=== PATIENT | female | born 1945 | race African-American/Black ===

== ENCOUNTER 2017-02-20 12:23 | Inpatient (IN) | payer OTHER, MEDICAID, MEDICARE ==
--- NOTE | 2017-02-20 12:51 | ED Physician Chart ---
Chief Complaint/HPI - Patient Information Date Seen:: 02/20/17 Time Seen:: 12:25 Chief Complaint:: Left Arm pain History of Present Illness:: pt developed left shoulder, left humerus, and left chest pain after an injury this morning at her care facility home; denies LOC, ALOC, dyspnea, Abd. pain, neck pain, H/As Allergies:: Allergies Allergy/AdvReac Type Severity Reaction Status Date / Time No Known Allergies Allergy Verified 02/20/17 12:30 Vitals:: Vital Signs - 8 hr 02/20/17 12:23 Temp 98.6 F HR 62 RR 16 BP 140/70 O2 Sat % 97 Historian:: Patient, EMS Review:: Nurse's Note Reviewed, Transfer documents Reviewed Review of Systems - Review of Systems General/Constitutional: Fever, Chills, No weight loss, Weakness, No diaphoresis , No edema, No loss of appetite Skin: No skin lesions, No rash, No bruising Head: Headache, No light-headedness Eyes: No loss of vision, No pain, No diplopia ENT: No earache, No nasal drainage, No sore throat, No tinnitus Neck: No neck pain, No swelling, No thyromegaly, No stiffness, No mass noted Cardio Vascular: Chest pain, Palpitations, No PND, No orthopnea, No edema Pulmonary: No SOB, Cough, No sputum, No wheezing GI: Nausea, Vomiting, Diarrhea, No pain, No melena, No hematochezia, No constipation, No hematemesis G/U: No dysuria, No frequency, No hematuria Manager Of It: No vaginal discharge, No abnormal vaginal bleed, No contraction Musculoskeletal: Bone or joint pain, No back pain, Muscle pain Endocrine: No polyuria, No polydipsia Psychiatric: Prior psych history, No depression, No anxiety, No suicidal ideation, Auditory hallucination, Visual hallucination Hematopoietic: No bruising, No lymphadenopathy Allergic/Immuno: No urticaria, No angioedema Neurological: No syncope, No focal symptoms, No weakness, No paresthesia, No headache, No seizure, No dizziness, No confusion, No vertigo Past Medical History - Past Medical History Past Medical History: HTN, Arthritis Family History: Diabetes Melitus, HTN Social History: Non Smoker, No Alcohol, No Drug Use, Single, Care Facility Surgical History: other (Left Ocular Surgery) Psychiatricy History: Schizophrenia Medication: Reviewed Family Medical History - Family Member Mother History Unknown: Yes Physical Exam - Physical Examination General/Constitutional: Awake, Well-developed, well-nourished, Alert, No distress, GCS 15, Non-toxic appearing, Ambulatory Head: Atraumatic Eyes: Lids, conjuctiva normal, PERRL, EOMI Skin: Nl inspection, No rash, No skin lesions, No ecchymosis, Well hydrated, No lymphadenopathy ENMT: External ears, nose nl, Nasal exam nl, Lips, teeth, gums nl Neck: Nontender, Full ROM w/o pain, No JVD, No nuchal rigidity, No bruit, No mass, No stridor Respiratory: Nl effort/Exclusion, Clear to Auscultation, No Wheeze/Rhonchi/Rales Cardio Vascular: RRR, No murmur, gallop, rubs, NL S1 S2 GI: No tenderness/rebounding/guarding, No organomegaly, No hernia, Normal BS's, Nondistended, No mass/bruits, No McBurney tenderness : No CVA tenderness Extremities: No tenderness or effusion, Full ROM, normal strength in all extremities, No edema, Normal digits & nails Other Extremities comments:: Left Chest Wall, Left Clavicle, Left Shoulder, and Left Humerus tenderness; good motor and sensory functions; good NV functions Neuro/Psych: Alert/oriented, DTR's symmetric, Normal sensory exam, Normal motor strength, Judgement/insight normal, Mood normal, Normal gait, No focal deficits Misc: normal gait, Normal back, No paraspinal tenderness Labs/Radiology/EKG Results - Lab Results Results: Unremarkable - Radiology Results Results: X-Rays: Left Humerus Impacted Fracture of the head and neck of the Left Humerus Bone of the Left Shoulder - EKG Interpretations EKG Time:: 13:11 Rate & Rhythm: Rate: 61; NSR [place]: WNL Intervals: WNL Comments:: non-specific changes ED Septic Shock - . Is Septic Shock (SBP<90, OR Lactate>4 mmol\L) present?: No - <6hrs of presentation: Vital Signs: Vital Signs - 8 hr 02/20/17 12:23 Temp 98.6 F HR 62 RR 16 BP 140/70 O2 Sat % 97 Reassessment (Disposition) - Reassessment Reassessment Condition:: Improved - Diagnosis Diagnosis:: Left Shoulder Fracture; Syncope; S/P Fall - Aftercare/Follow up Instructions Aftercare/Follow-Up Instructions:: Counseled pt & family regarding lab results/ diagnosis & need follow up - Patient Disposition Discharge/Transfer:: Acute Care w/in this hosp Accepting Physician:: Dr. Napoles Time Called:: 1087 Time Responded:: 15:45 Admitted to:: Telemetry Spoke to:: Dr. Napoles Condition at Disposition:: Stable, Improved
[2017-02-20 13:11] LABS: % BASOPHILS 0.4 % (0.0-2.0); % EOSINOPHILS 1.3 % (0.0-5.0); % LYMPHOCYTES 10.8 % (20.0-50.0); % MONOCYTES 6.7 % (2.0-10.0); % NEUTROPHILS 80.8 % (40.0-80.0); HEMATOCRIT 37.7 % (35.0-45.0); HEMOGLOBIN 12.6 gm/dL (11.7-16.1); MEAN CELL VOLUME 87.8 fl (81-100); MEAN CORPUSCULAR HEMOGLOBIN 29.3 pg (27.0-31.0); MEAN CORPUSCULAR HGB CONC 33.3 pg (28.0-36.0); MEAN PLATELET VOLUME 7.4 fl; NEUTROPHILE ABSOLUTE 6.8 Th/cmm (1.8-8.0); RED BLOOD COUNT 4.29 Mil/cmm (3.80-5.20); WHITE BLOOD COUNT 8.4 Th/cmm (4.8-10.8)
[2017-02-20 13:17] LABS: PLATELET COUNT 212 Th/cmm (150-400)
[2017-02-20 13:21] LABS: INR 1.06 (0.5-1.4)
[2017-02-20 13:29] LABS: ANION GAP 5.2 (7.0-16.0); BUN - UREA NITROGEN 22 mg/dL (7-25); CALCIUM SERUM 9.6 mg/dL (8.6-10.3); CARBON DIOXIDE 29.9 mEq/L (21.0-31.0); CHLORIDE 105 mEq/L (98-107); CREATININE - SERUM 1.1 mg/dL (0.6-1.2); GLUCOSE 200 mg/dL (70-105); POTASSIUM SERUM 4.1 mEq/L (3.5-5.1); SODIUM SERUM 136 mEq/L (136-145)
[2017-02-20 13:30] LABS: TROP I < 0.01 ng/mL (0.01-0.05)
[2017-02-20 13:40] LABS: BNP 67.1 pg/mL (5.0-100.0)
--- NOTE | 2017-02-20 14:18 | Diagnostic Imaging Report ---
CHEST X-RAY: AP view INDICATION: Trauma COMPARISON: None FINDINGS: No focal consolidation pleural effusions or evidence of a pneumothorax. The patient is mildly rotated. Heart size is normal. Atherosclerosis is noted. A proximal left humeral fracture is noted. IMPRESSION: No focal consolidation or evidence of pneumothorax Proximal left humeral fracture. Please refer to left humerus x-rays the same day for further details. Atherosclerotic vascular disease.
--- NOTE | 2017-02-20 14:20 | Diagnostic Imaging Report ---
Left clavicle 2 views Indication: Trauma Comparison: Left shoulder and left humeral x-ray the same day Findings: The left clavicle is intact. The left AC joint is intact. Impacted left humeral head and neck fracture is noted. Impression: Impacted left humeral head and neck fracture Intact left clavicle No evidence of AC joint separation. In the setting of trauma, if clinical symptoms persist and there is continued concern for an occult fracture, follow up exams in 5-7 days is suggested.
--- NOTE | 2017-02-20 14:21 | Diagnostic Imaging Report ---
Left shoulder 2 views Indication: Trauma Comparison: Left humerus x-rays the same day Findings: Impacted left humeral head and neck fracture is noted. No evidence of dislocation. Mild surrounding soft tissue swelling is noted. Impression: Impacted left humeral head and neck fracture. No evidence of dislocation.
--- NOTE | 2017-02-20 14:22 | Diagnostic Imaging Report ---
Left humerus 2 views Indication: Trauma Comparison: Left shoulder x-ray the same day Findings: Impacted left humeral head and neck fracture is noted. No dislocation. Mild surrounding soft tissue swelling is noted. Impression: Impacted left humeral head and neck fracture.
--- NOTE | 2017-02-20 14:23 | Diagnostic Imaging Report ---
Left elbow 3 views Indication: Trauma Comparison: Left humerus x-rays the same day Findings: Osteopenia is suspected. Minimal degenerative changes of the elbow joint are noted. No evidence of an acute fracture or gross joint effusion. Impression: No evidence of an acute fracture. Osteopenia suspected. In the setting of trauma, if clinical symptoms persist and there is continued concern for an occult fracture, follow up exams in 5-7 days is suggested.
--- NOTE | 2017-02-20 16:21 | Admit Criteria Form ---
Admit Criteria Forms - Admit Criteria Diagnosis: MUSCULOSKELETAL DISEASE [facility] Clinical Indications for Admission to Inpatient Care (Place 'X' for any and all applicable criteria): Hospital admission is needed for appropriate care of the patient because of 1 or more of the following: [X ]I. Fracture, dislocation, or other musculoskeletal injury requiring inpatient care(medical) as indicated by 1 or more of the following(4)(5)(6)(7) [ ]a) Vertebral fracture requiring observation for instability or neurologic compromise (8) [ ]b) Compartment syndrome (proven or cannot be ruled out during observation level of care) (9) [ ]c) Limb-threatening injury [ ]d) Major injury requiring inpatient stabilization such as traction initiation or external fixation before internal fixation or closure of complex or open fracture [ ]e) Major injury requiring inpatient treatment after emergency or observation level care (as appropriate) [X ]f) Severe pain requiring acute inpatient management [ ]g) Injury with suspicion of abuse or neglect (eg., child, dependent elderly) [ ]II. Newly diagnosed or suspected bone, joint, or orthopedic device infection (e.g., osteomyelitis, septic arthritis) needing 1 or more of the following(1)(2)(3) [ ]a) IV antibiotics that cannot be initiated in other than inpatient setting (e.g., patient too unstable or home infusion not available) [ ]b) Device removal or replacement [ ]c) Bone or soft tissue debridement [ ]d) Joint drainage (drain placement or repetitive aspirations) [ ]III. Severe rheumatologic disease (e.g., systemic lupus erythematosus, rheumatoid arthritis) with complications or comorbidities (Also use Optimal Recovery Care Criteria or General Recovery Criteria as appropriate on the basis of predominant condition), including 1 or more of the following( 10)(11)(12)(13) [ ]a) Severe infection (e.g., BOTTLE FILLER infection, sepsis) (14) [ ]b) Respiratory complications, including 1 or more of the following : [ ]i) Pleural effusion with respiratory compromise [ ]ii) Pulmonary hypertension with congestive failure [ ]iii) Respiratory failure [ ]iv) Pulmonary hemorrhage (15) [ ]c) Hematologic disease, including 1 or more of the following: [ ]i) Coagulopathy with bleeding [ ]ii) Thrombosis with hypercoagulable state [ ]iii) Thrombotic thrombocytopenic purpura [ ]d) Cerebritis with seizures, psychosis, or other severe abnormalities [ ]e) Vertebral destruction with monitoring needed for cervical myelopathy& possible respiratory compromise [ ]f) Exacerbation that requires inpatient treatment (e.g., intravenous immunosuppression) (16) [ ]g) Acute renal failure [ ]h) Cerebritis with seizures, psychosis, Altered mental status, or other neurologic abnormalities [ ]i) Pericardial effusion with tamponade [ ]j) Vertebral destruction, with monitoring needed for cervical myelopathy and possible respiratory compromise [ ]IV. Severe vasculitis with complications or comorbidities (Also use Optimal Recovery Care Criteria General Recovery Criteria as appropriate on the basis of predominant condition), including 1 or more of the following(11)(12)(17)(18)(19)(20) [ ]a) Exacerbation that requires inpatient treatment (e.g., intravenous immunosuppression) (19)(21) [ ]b) Pulmonary hemorrhage (15) [ ]c) BOTTLE FILLER vasculitis with seizures, psychosis, Altered mental status that is severe or persistent, or other severe abnormalities (22) [ ]d) Cerebral infarction [ ]e) Gastrointestinal ischemia [ ]f) Gangrene or threatened amputation [ ]g) Renal failure (16) [ ]h) Other significant complications of vasculitis ( eg., tissue or organ ischemia, organ dysfunction ) [ ]V. Severe myopathy as indicated by 1 or more of the following (28)(29) [ ]a) New onset of airway compromise or inability to swallow [ ]b) Respiratory deterioration with observation needed for impending respiratory failure [ ]c) Exacerbation that requires inpatient treatment (e.g., intravenous immunosuppression) [ ]. Severe crystal gout (arthropathy) indicated by 1 or more of the following (23)(24) [ ]a) Severe pain requiring acute inpatient management [ ]b) Exacerbation that requires inpatient treatment (e.g., intravenous treatment) [ ]VII.Rhabdomyolysis and 1 or more of the following (25)(26)(27) [ ]a) Acute renal failure [ ]b) Need for intravenous hydration after emergency or observation level care (as appropriate) [ ]c) Inability to maintain oral hydration [ ]d) Change in mental status [ ]e) Electrolyte abnormality that remains after emergency or observation level care (as appropriate) [ ]VIII Post amputation complication, as indicated by ANY ONE of the following [ ]a) Infection [ ]b) Dehiscence [ ]c) Myodesis failure [ ]IX. Severe pain requiring acute inpatient management due to musculoskeletal condition [ ]X. Musculoskeletal Disease and ALL of the following: [ ]a) Symptom or finding for which emergency and observation care have failed or are not considered appropriate (Use General Criteria: Observation Care as appropriate) [ ]b) Presence of ANY ONE of the following [ ]i) A General Admission Criteria [ ]ii) A Pediatric General Admission Criteria The original [facility] content created by [facility] has been revised. The portions of the content which have been revised are identified through the use of italic text or in bold, and [facility] has neither reviewed nor approved the modified material. All other unmodified content is copyright [facility]. Please see references footnoted in the original [facility] edition 2016 Admit Criteria Met?: Yes
[2017-02-20] MEDS ORDERED: Morphine Sulfate 4 mg/mL 1mL Syr ONE (16:33)
[2017-02-20] MEDS: Diltiazem CD 120 mg 24H PO SCH (22:21)
[2017-02-20] MEDS: Pantoprazole 40 mg EC Tab PO SCH (22:23)
[2017-02-20] MEDS: Benztropine 1 MG TAB PO SCH (22:25)
[2017-02-21] MEDS: Oxybutynin Chloride 5 mg ER Tab PO SCH ×2 (04:41→09:42)
[2017-02-21] MEDS: Benztropine 1 MG TAB PO SCH ×2 (09:34→16:56)
[2017-02-21] MEDS: Diltiazem CD 120 mg 24H PO SCH (09:37)
[2017-02-21] MEDS: Pantoprazole 40 mg EC Tab PO SCH (09:40)
--- NOTE | 2017-02-21 10:53 | Consultation ---
DATE OF CONSULTATION: 02/21/2017 REFERRING PHYSICIAN: Weston Napoles M.D. REASON FOR CONSULTATION: Elevated D-dimer. HISTORY OF PRESENT ILLNESS: The patient is a 71-year-old female who suffered fall and trauma to the left shoulder and was complaining of severe pain. She had an x-ray confirming presence of left humerus head and neck fracture, therefore, the patient is admitted. The workup was unremarkable for elevated D-dimer, otherwise normal PT and PTT and platelet count. PAST MEDICAL HISTORY: Hypertension, osteoarthritis. SOCIAL HISTORY: No smoke or drinking. MEDICATIONS: Reviewed. PHYSICAL EXAMINATION: GENERAL: The patient is awake, cooperative. VITAL SIGNS: Stable. NECK: No peripheral lymphadenopathy. Left arm sling, no obvious hematoma. CHEST: Clear. ABDOMEN: Soft. EXTREMITIES: Lower extremities, no edema. NERVOUS SYSTEM: Moves lower extremities and right upper extremity. Left arm in sling and not tested. LABORATORY DATA: D-dimer 1210 and platelets 212, creatinine 1.1. ASSESSMENT: 1. Left humerous head and neck fracture. 2. Elevated D-dimer secondary to fracture and trauma. PLAN: No intervention is required for the elevated D-dimer. I will start the patient on prophylactic dose Lovenox and hold on the day of surgery if she is to get orthopedic surgical intervention. Thank you, Dr. Napoles for the opportunity to participate in the care of this interesting case. [facility]# [id number]
[2017-02-21] MEDS: Enoxaparin 40 mg/0.4 mL 0.4mL Syr SUBQ SCH (11:06)
--- NOTE | 2017-02-21 13:35 | Diagnostic Imaging Report ---
Bilateral lower extremity Doppler venous ultrasound exam HISTORY: Pain/swelling Sonographic sector images were obtained through the deep venous systems of both legs. Associated Doppler data was obtained. The exam demonstrates patency of the common femoral, superficial femoral, popliteal, and posterior tibial veins bilaterally. Specifically, no thrombus is seen. There are normal compressibility and augmentation responses. IMPRESSION: Negative exam for deep vein thrombophlebitis.
--- NOTE | 2017-02-21 23:47 | History & Physical ---
ADMIT DATE: 02/20/2017 REASON FOR ADMISSION: Status post fall, left shoulder fracture. HISTORY OF PRESENT ILLNESS: This is a 71-year-old female who sustained a mechanical fall at [facility] and was brought to Emergency Room for severe left lower pain. Her left shoulder x-ray was done suggestive of impacted left humeral head and neck fracture. The patient was given shoulder sling and subsequently admitted for further evaluation and treatment. At the time of evaluation, the patient stated that while she was going to laundry area, she missed the steps, tripped, and fell. She denies any associated dizziness. No chest pain, no shortness of breath, no palpitations, no headache, no trouble speech or visual disturbance, no fever, no chills or any other complaints. Pain is under control with the pain medication. PAST MEDICAL HISTORY: Overactive bladder, dementia, hypertension, and chronic constipation. PAST SURGICAL HISTORY: No reports of any past surgery. FAMILY HISTORY: Noncontributory. SOCIAL HISTORY: Lives at [facility]. Denies any alcohol or tobacco. CURRENT MEDICATIONS: The patient is currently on [place], Cardizem, Cymbalta, Lovenox, Zestril, Toprol, morphine, Zofran, oxybutynin, Protonix, Risperdal, and trazodone. REVIEW OF SYSTEMS: The patient denies any fever, no chills, no nausea, no vomiting, no abdominal pain, no headache, ____ trouble speech, no trouble with vision. Denies any dysuria or hematuria. Denies hematemesis or bleeding. Complains of pain in the left arm and the shoulder area. PHYSICAL EXAMINATION: VITAL SIGNS: Temperature 98.7, pulse 61, respirations 18, blood pressure 140/75, and oxygen 96% on room air. GENERAL APPEARANCE: The patient does not seem in acute distress. HEENT: Unremarkable. HEART: S1, S2 normal. LUNGS: Clear to auscultation bilaterally. ABDOMEN: Soft, nontender, and no guarding. NEUROLOGIC: The patient is awake. Moves all four. No focal deficits. MUSCULOSKELETAL: Left shoulder sling noted. Left shoulder range of motion was extremely painful. AVAILABLE LABORATORY DATA: WBC is 8.4, hemoglobin is 12.6, hematocrit 37.7, platelets count is 212, sodium 133, potassium is 4.1, BUN 22, creatinine is 1.1, hemoglobin A1c 5.5, troponin less than 0.015. BNP is 67.1. D-dimer 1210. Left humerus x-ray as described above. Right lower extremity venous Doppler negative for DVT. Chest x-ray shows no acute cardiopulmonary distress. ASSESSMENT: 1. Left humerus fracture. 2. Status post mechanical fall. 3. Hypertension. 4. Psychiatric disorder. 5. Overactive bladder. 6. Dementia. 7. Generalized debility. PLAN: The patient was admitted to the hospital for further treatment of left shoulder fracture. Orthopedics was consulted. Also, Hematology was consulted to evaluate D-dimer. Hematology evaluated the patient's D-dimer ____ due to the patient's current fracture, no further Hematology workup was advised. The patient was started on DVT prophylaxis, IV morphine for pain control, home medications ____ continue. Discussed the patient ____ condition and plan of care with nursing staff. [facility]# [id number]
[2017-02-22 07:17] LABS: % BASOPHILS 0.6 % (0.0-2.0); % EOSINOPHILS 1.3 % (0.0-5.0); % LYMPHOCYTES 15.2 % (20.0-50.0); % MONOCYTES 12.1 % (2.0-10.0); % NEUTROPHILS 70.8 % (40.0-80.0); HEMATOCRIT 37.7 % (35.0-45.0); HEMOGLOBIN 12.7 gm/dL (11.7-16.1); MEAN CELL VOLUME 87.7 fl (81-100); MEAN CORPUSCULAR HEMOGLOBIN 29.5 pg (27.0-31.0); MEAN CORPUSCULAR HGB CONC 33.7 pg (28.0-36.0); MEAN PLATELET VOLUME 8.1 fl; NEUTROPHILE ABSOLUTE 5.4 Th/cmm (1.8-8.0); PLATELET COUNT 206 Th/cmm (150-400); RED BLOOD COUNT 4.29 Mil/cmm (3.80-5.20); RED CELL DISTRIBUTION WIDTH 13.7 % (11.5-20.0); WHITE BLOOD COUNT 7.5 Th/cmm (4.8-10.8)
[2017-02-22] MEDS: Benztropine 1 MG TAB PO SCH ×2 (09:38→17:08)
[2017-02-22] MEDS: Diltiazem CD 120 mg 24H PO SCH (09:38)
[2017-02-22] MEDS: Oxybutynin Chloride 5 mg ER Tab PO SCH (09:38)
[2017-02-22] MEDS: Pantoprazole 40 mg EC Tab PO SCH (09:40)
[2017-02-22] MEDS: Enoxaparin 40 mg/0.4 mL 0.4mL Syr SUBQ SCH (09:43)
--- NOTE | 2017-02-22 23:44 | General Progress Note ---
Subjective - Review of Systems Service Date: 02/22/17 Subjective: Patient doing fine denied any complaints Objective - Results Result Diagrams: 02/22/17 06:12 02/20/17 13:00 Recent Labs: Laboratory Last Values WBC 7.5 Th/cmm (4.8-10.8) 02/22/17 06:12 RBC 4.29 Mil/cmm (3.80-5.20) 02/22/17 06:12 Hgb 12.7 gm/dL (11.7-16.1) 02/22/17 06:12 Hct 37.7 % (35.0-45.0) 02/22/17 06:12 MCV 87.7 fl (81-100) 02/22/17 06:12 MCH 29.5 pg (27.0-31.0) 02/22/17 06:12 MCHC Differential 33.7 pg (28.0-36.0) 02/22/17 06:12 RDW 13.7 % (11.5-20.0) 02/22/17 06:12 Plt Count 206 Th/cmm (150-400) 02/22/17 06:12 MPV 8.1 fl 02/22/17 06:12 Neutrophils % 70.8 % (40.0-80.0) 02/22/17 06:12 Lymphocytes % 15.2 % (20.0-50.0) L 02/22/17 06:12 Monocytes % 12.1 % (2.0-10.0) H 02/22/17 06:12 Eosinophils % 1.3 % (0.0-5.0) 02/22/17 06:12 Basophils % 0.6 % (0.0-2.0) 02/22/17 06:12 PT 11.0 SECONDS (9.5-11.5) 02/20/17 13:00 INR 1.06 (0.5-1.4) 02/20/17 13:00 D-Dimer 1210 ng/mL (100-400) H 02/20/17 13:00 Sodium 136 mEq/L (136-145) 02/20/17 13:00 Potassium 4.1 mEq/L (3.5-5.1) 02/20/17 13:00 Chloride 105 mEq/L (98-107) 02/20/17 13:00 Carbon Dioxide 29.9 mEq/L (21.0-31.0) 02/20/17 13:00 Anion Gap 5.2 (7.0-16.0) L 02/20/17 13:00 BUN 22 mg/dL (7-25) 02/20/17 13:00 Creatinine 1.1 mg/dL (0.6-1.2) 02/20/17 13:00 Est GFR ( Amer) TNP 02/20/17 13:00 Est GFR (Non-Af Amer) TNP 02/20/17 13:00 BUN/Creatinine Ratio 20.0 02/20/17 13:00 Glucose 200 mg/dL (70-105) H 02/20/17 13:00 Hemoglobin A1c % 5.5 % (4.0-6.0) 02/20/17 13:00 Calcium 9.6 mg/dL (8.6-10.3) 02/20/17 13:00 Creatine Kinase 124 U/L (30-223) 02/20/17 13:00 Troponin I < 0.01 ng/mL (0.01-0.05) L 02/20/17 13:00 B-Natriuretic Peptide 67.1 pg/mL (5.0-100.0) 02/20/17 13:00 - Physical Exam Vitals and I&O: Vital Signs Temp 97.9 F 02/22/17 20:00 Pulse 72 02/22/17 20:00 Resp 19 02/22/17 20:00 BP 138/79 02/22/17 20:00 Pulse Ox 98 02/22/17 20:00 Intake & Output 02/22/17 02/22/17 02/23/17 06:59 18:59 06:59 Intake Total 60 600 Balance 60 600 Intake: Oral 60 600 Other: # Voids 2 3 # Bowel Movements 1 Stool Characteristics Formed Formed Active Medications: Current Medications Benztropine Mesylate (Cogentin) 1 mg PO DAILY [facility] Stop: 04/24/17 16:59 Calcium Carbonate (Os-[place]) 500 mg PO BID [facility] Stop: 04/21/17 20:29 Last Admin: 02/22/17 17:08 Dose: 500 mg Diltiazem HCl (Cardizem Cd) 240 mg PO DAILY [facility] Stop: 04/21/17 20:29 Last Admin: 02/22/17 09:38 Dose: 240 mg Donepezil HCl (Aricept) 10 mg PO HS [facility] Stop: 04/22/17 20:59 Last Admin: 02/22/17 21:19 Dose: 10 mg Duloxetine HCl (Cymbalta) 30 mg PO DAILY [facility] PRN Reason: Protocol Stop: 04/21/17 20:29 Last Admin: 02/22/17 09:40 Dose: 30 mg Enoxaparin Sodium (Lovenox) 40 mg SUBQ DAILY [facility] Stop: 04/22/17 10:29 Last Admin: 02/22/17 09:43 Dose: 40 mg Lisinopril (Zestril) 40 mg PO DAILY [facility] Stop: 04/21/17 20:29 Last Admin: 02/22/17 09:39 Dose: 40 mg Metoprolol Succinate (Toprol Xl) 50 mg PO DAILY [facility] Stop: 04/21/17 20:29 Last Admin: 02/22/17 09:40 Dose: 50 mg Morphine Sulfate (Morphine) 3 mg IV Q3HR PRN PRN Reason: Pain (Mild) Stop: 04/21/17 18:22 Last Admin: 02/22/17 05:54 Dose: 3 mg Ondansetron HCl (Zofran) 4 mg IV Q6HR PRN PRN Reason: Nausea / Vomiting Stop: 04/21/17 18:22 Oxybutynin Chloride (Ditropan) 5 mg PO DAILY [facility] Stop: 04/24/17 08:59 Pantoprazole Sodium (Protonix) 40 mg PO DAILY [facility] Stop: 04/21/17 20:29 Last Admin: 02/22/17 09:40 Dose: 40 mg Risperidone (Risperdal) 1 mg PO HS [facility] PRN Reason: Protocol Stop: 04/21/17 20:59 Last Admin: 02/22/17 21:19 Dose: 1 mg Trazodone HCl (Desyrel) 100 mg PO HS [facility] Stop: 04/21/17 20:59 Last Admin: 02/22/17 21:20 Dose: 100 mg Cardiovascular: Regular rate Lungs: Clear to auscultation Abdomen: Soft - Procedures Procedures: Procedures Procedure Code Date OTHER GROUP THERAPY 94.44 10/24/12 RECREATIONAL THERAPY 93.81 10/24/12 Assessment/Plan - Assessment Assessment: Left humerus fracture HTN Overactive Bladder Psych disorder - Plan Plan: Per Ortho no surgical intervention recomended SNIF DC planing in progress Continue current treatment Nutritional Asmnt/Malnutr-PDOC - Dietary Evaluation Malnutrition Findings (Please click <Entered> for more info): Nutritional Asmnt/Malnutrition Start: 02/21/17 10: 02 Text: Status: Complete Freq: Document 02/21/17 10:02 GSUN (Rec: 02/21/17 10:12 [email or web address] [email or web address]) Nutritional Asmnt/Malnutrition Patient General Information Nutritional Screening Consult Diagnosis ER: left shoulder fracture, s/ p fall, syncope Pertinent Medical Hx/Surgical Hx ER: HTN, arthritis Subjective Information 71 year old female from SNF. RD consult for hyperglycemia. Pt was alert and cooperative, pleasant interview. Teeth present, pt stated "lump" at throat, but denied difficulties swallowing. UBW 152lb. Pt appeared approrpiate for age. Pt stated good appetite, ate most of breakfast. No nutritional concerns at this time. Current Diet Order/ Nutrition Support Low sodium Patient / S.O Can Pertinent Medications Os0Cal, Morphine, Zofran, Protonix Pertinent Labs 02/20: glucose 200H, A1c 5.5 Nutritional Hx/Data Height 1.65 m Height (Calculated Centimeters) 165.1 Current Weight (lbs) 67.585 kg Weight (Calculated Kilograms) 67.6 Weight (Calculated Grams) 08924.3 Usual body Weight (lbs) 152 [place] Body Weight 125 Recent Weight Change No Weight Status Approriate GI Symptoms Food Allergies No Usual diet at home Pt stated she does not eat salt at SNF (liekly MARANDA diet) Skin Integrity/Comment: [place] 17. Skin intact. Estimated Nutritional Goals BEE in Kcals: Using Current wt Calories/Kcals/Kg CBW 67.6kg Kcals Calculated 1690-2028kcal (25-30kcal/kg) Protein: Using Current wt Protein Calculated 68g (1g/kg) Fluid: ml 1690-2028ml (1ml/kcal) Nutritional Problem 1. Problem Problem No nutritional problem at this time. Intervention/Recommendation Comments 1. Continue with low sodium diet. Explained to pt low sodium diet vs. HTN. Expected Outcomes/Goals Expected Outcomes/Goals 1. PO intake to meet at least 75% fo estimated nutritional needs.
--- NOTE | 2017-02-23 04:33 | Consultation ---
DATE OF CONSULTATION: 02/22/2017 HISTORY OF PRESENT ILLNESS: The patient is a 71-year-old resident of [facility] who was admitted to [facility] on 02/20/2017, following a fall at the facility wherein she injured her left shoulder. She is also being worked up for hypertension and medical problems. I was called in orthopedic consultation by the admitting physician regarding her fractured left shoulder. ADDITIONAL HISTORY: The patient stated she has "a little high blood pressure," further stated that she does not have any real medical problems. FAMILY HISTORY: She is not sure. REVIEW OF SYSTEMS: No additional complaints. PHYSICAL EXAMINATION: GENERAL: The patient was examined in her hospital room at [facility]. She presents as conscious, alert, pleasant 71-year-old -[place] lady in no acute distress. Head: Normocephalic and atraumatic. NECK: Supple with good range of motion, no pain. EXTREMITIES: Right upper extremity unremarkable. Left upper extremity, there is no bruising or swelling noted. She has pain and tenderness about the left shoulder. Range of motion was not fully tested. NEUROLOGIC: Neurovascular function of all extremities was within normal limits. IMAGING STUDIES: I reviewed images in the PACS, left elbow, humerus and shoulder there is a slightly impacted fracture of the head of the left humerus with involvement of the greater tuberosity, which is slightly twisted and displaced 1-2 mm. Overall alignment is good. The articular surface is intact. ORTHOPEDIC DIAGNOSIS: Fractured head of the left humerus, minimally displaced. RECOMMENDATIONS: The patient was told to continue with her sling. She can do Codman pendulum exercises. She should not lean on the left arm or elbow nor should she try and raise it under her own power on that side unless the fractured greater tuberosity displaces which would then probably require surgery - open reduction and internal fixation. She can have a followup x-ray in 2-3 weeks to check the position of the fracture to be sure it is not displacing significantly. Her injury should heal in 2-3 months. I would be happy to follow her in my office as an outpatient. Thank you for this interesting referral. JOB# [id number]
[2017-02-23] MEDS: Diltiazem CD 120 mg 24H PO SCH (08:46)
[2017-02-23] MEDS: Pantoprazole 40 mg EC Tab PO SCH (08:46)
[2017-02-23] MEDS: Enoxaparin 40 mg/0.4 mL 0.4mL Syr SUBQ SCH (08:48)
[2017-02-23] MEDS ORDERED: Benztropine 1 MG TAB PO SCH (17:00)
--- NOTE | 2017-02-23 18:03 | General Progress Note ---
Subjective - Review of Systems Service Date: 02/23/17 Subjective: Patient doing fine denied any complaints Objective - Results Result Diagrams: 02/22/17 06:12 02/20/17 13:00 Recent Labs: Laboratory Last Values WBC 7.5 Th/cmm (4.8-10.8) 02/22/17 06:12 RBC 4.29 Mil/cmm (3.80-5.20) 02/22/17 06:12 Hgb 12.7 gm/dL (11.7-16.1) 02/22/17 06:12 Hct 37.7 % (35.0-45.0) 02/22/17 06:12 MCV 87.7 fl (81-100) 02/22/17 06:12 MCH 29.5 pg (27.0-31.0) 02/22/17 06:12 MCHC Differential 33.7 pg (28.0-36.0) 02/22/17 06:12 RDW 13.7 % (11.5-20.0) 02/22/17 06:12 Plt Count 206 Th/cmm (150-400) 02/22/17 06:12 MPV 8.1 fl 02/22/17 06:12 Neutrophils % 70.8 % (40.0-80.0) 02/22/17 06:12 Lymphocytes % 15.2 % (20.0-50.0) L 02/22/17 06:12 Monocytes % 12.1 % (2.0-10.0) H 02/22/17 06:12 Eosinophils % 1.3 % (0.0-5.0) 02/22/17 06:12 Basophils % 0.6 % (0.0-2.0) 02/22/17 06:12 PT 11.0 SECONDS (9.5-11.5) 02/20/17 13:00 INR 1.06 (0.5-1.4) 02/20/17 13:00 D-Dimer 1210 ng/mL (100-400) H 02/20/17 13:00 Sodium 136 mEq/L (136-145) 02/20/17 13:00 Potassium 4.1 mEq/L (3.5-5.1) 02/20/17 13:00 Chloride 105 mEq/L (98-107) 02/20/17 13:00 Carbon Dioxide 29.9 mEq/L (21.0-31.0) 02/20/17 13:00 Anion Gap 5.2 (7.0-16.0) L 02/20/17 13:00 BUN 22 mg/dL (7-25) 02/20/17 13:00 Creatinine 1.1 mg/dL (0.6-1.2) 02/20/17 13:00 Est GFR ( Amer) TNP 02/20/17 13:00 Est GFR (Non-Af Amer) TNP 02/20/17 13:00 BUN/Creatinine Ratio 20.0 02/20/17 13:00 Glucose 200 mg/dL (70-105) H 02/20/17 13:00 Hemoglobin A1c % 5.5 % (4.0-6.0) 02/20/17 13:00 Calcium 9.6 mg/dL (8.6-10.3) 02/20/17 13:00 Creatine Kinase 124 U/L (30-223) 02/20/17 13:00 Troponin I < 0.01 ng/mL (0.01-0.05) L 02/20/17 13:00 B-Natriuretic Peptide 67.1 pg/mL (5.0-100.0) 02/20/17 13:00 - Physical Exam Vitals and I&O: Vital Signs Temp 98.2 F 02/23/17 16:00 Pulse 75 02/23/17 16:00 Resp 17 02/23/17 16:00 BP 128/68 02/23/17 16:00 Pulse Ox 98 02/23/17 16:00 Intake & Output 02/22/17 02/23/17 02/23/17 18:59 06:59 18:59 Intake Total 600 160 500 Balance 600 160 500 Intake: Oral 600 160 500 Other: # Voids 3 2 3 # Bowel Movements 1 Stool Characteristics Formed Formed Formed Active Medications: Current Medications Benztropine Mesylate (Cogentin) 1 mg PO DAILY [facility] Stop: 04/24/17 16:59 Calcium Carbonate (Os-[place]) 500 mg PO BID [facility] Stop: 04/21/17 20:29 Last Admin: 02/23/17 16:54 Dose: 500 mg Diltiazem HCl (Cardizem Cd) 240 mg PO DAILY [facility] Stop: 04/21/17 20:29 Last Admin: 02/23/17 08:46 Dose: 240 mg Donepezil HCl (Aricept) 10 mg PO HS [facility] Stop: 04/22/17 20:59 Last Admin: 02/22/17 21:19 Dose: 10 mg Duloxetine HCl (Cymbalta) 30 mg PO DAILY [facility] PRN Reason: Protocol Stop: 04/21/17 20:29 Last Admin: 02/23/17 08:47 Dose: 30 mg Enoxaparin Sodium (Lovenox) 40 mg SUBQ DAILY [facility] Stop: 04/22/17 10:29 Last Admin: 02/23/17 08:48 Dose: 40 mg Lisinopril (Zestril) 40 mg PO DAILY [facility] Stop: 04/21/17 20:29 Last Admin: 02/23/17 08:46 Dose: 40 mg Metoprolol Succinate (Toprol Xl) 50 mg PO DAILY [facility] Stop: 04/21/17 20:29 Last Admin: 02/23/17 08:47 Dose: 50 mg Morphine Sulfate (Morphine) 3 mg IV Q3HR PRN PRN Reason: Pain (Mild) Stop: 04/21/17 18:22 Last Admin: 02/23/17 16:00 Dose: 3 mg Ondansetron HCl (Zofran) 4 mg IV Q6HR PRN PRN Reason: Nausea / Vomiting Stop: 04/21/17 18:22 Oxybutynin Chloride (Ditropan) 5 mg PO DAILY [facility] Stop: 04/24/17 08:59 Last Admin: 02/23/17 08:47 Dose: 5 mg Pantoprazole Sodium (Protonix) 40 mg PO DAILY [facility] Stop: 04/21/17 20:29 Last Admin: 02/23/17 08:46 Dose: 40 mg Risperidone (Risperdal) 1 mg PO HS [facility] PRN Reason: Protocol Stop: 04/21/17 20:59 Last Admin: 02/22/17 21:19 Dose: 1 mg Trazodone HCl (Desyrel) 100 mg PO HS [facility] Stop: 04/21/17 20:59 Last Admin: 02/22/17 21:20 Dose: 100 mg Cardiovascular: Normal S1, Normal S2 Lungs: Clear to auscultation Abdomen: Soft Extremities: Other (left fingers movement normal) - Procedures Procedures: Procedures Procedure Code Date OTHER GROUP THERAPY 94.44 10/24/12 RECREATIONAL THERAPY 93.81 10/24/12 Assessment/Plan - Assessment Assessment: Left humerus fracture HTN Overactive Bladder Psych disorder - Plan Plan: Per Ortho no surgical intervention recomended SNIF DC planing in progress Continue current treatment Nutritional Asmnt/Malnutr-PDOC - Dietary Evaluation Malnutrition Findings (Please click <Entered> for more info): Nutritional Asmnt/Malnutrition Start: 02/21/17 10: 02 Text: Status: Complete Freq: Document 02/21/17 10:02 GSUN (Rec: 02/21/17 10:12 [email or web address] [id number]) Nutritional Asmnt/Malnutrition Patient General Information Nutritional Screening Consult Diagnosis ER: left shoulder fracture, s/ p fall, syncope Pertinent Medical Hx/Surgical Hx ER: HTN, arthritis Subjective Information 71 year old female from SNF. RD consult for hyperglycemia. Pt was alert and cooperative, pleasant interview. Teeth present, pt stated "lump" at throat, but denied difficulties swallowing. UBW 152lb. Pt appeared approrpiate for age. Pt stated good appetite, ate most of breakfast. No nutritional concerns at this time. Current Diet Order/ Nutrition Support Low sodium Patient / S.O Can Pertinent Medications Os0Cal, Morphine, Zofran, Protonix Pertinent Labs 02/20: glucose 200H, A1c 5.5 Nutritional Hx/Data Height 1.65 m Height (Calculated Centimeters) 165.1 Current Weight (lbs) 67.585 kg Weight (Calculated Kilograms) 67.6 Weight (Calculated Grams) 34281.3 Usual body Weight (lbs) 152 [place] Body Weight 125 Recent Weight Change No Weight Status Approriate GI Symptoms Food Allergies No Usual diet at home Pt stated she does not eat salt at [facility] (liekly MARANDA diet) Skin Integrity/Comment: [place] 17. Skin intact. Estimated Nutritional Goals BEE in Kcals: Using Current wt Calories/Kcals/Kg CBW 67.6kg Kcals Calculated 1690-8kcal (25-30kcal/kg) Protein: Using Current wt Protein Calculated 68g (1g/kg) Fluid: ml 1690-2028ml (1ml/kcal) Nutritional Problem 1. Problem Problem No nutritional problem at this time. Intervention/Recommendation Comments 1. Continue with low sodium diet. Explained to pt low sodium diet vs. HTN. Expected Outcomes/Goals Expected Outcomes/Goals 1. PO intake to meet at least 75% fo estimated nutritional needs.
--- NOTE | 2017-03-16 21:25 | Discharge Summary ---
DATE OF DISCHARGE: 02/23/2017 FINAL DIAGNOSES: 1. Minimally displaced left humerus fracture, conservative management. 2. Hypertension. 3. Overactive bladder. 4. Psych disorders. HOSPITAL COURSE: This is a 71-year-old female who sustained a mechanical fall at [facility] where she [facility], was brought into Emergency Room for severe left arm pain, diagnosed with a minimal displaced left shoulder fracture. Ortho was consulted and recommended conservative management with outpatient followup, no surgical intervention recommended. The patient will benefit from short-term rehabilitation, discussed with the patient, agreed with the SNF transfer. manager electrical was consulted. The patient was accepted at the [facility], which is contracted with the patient's insurance. The patient was transferred there for further care and rehabilitation. Underlying problems were addressed and adequate pain control was given. DISCHARGE CONDITION: Stable. DISCHARGE MEDICATIONS: Please see medication reconciliation. DISCHARGE INSTRUCTION: The patient will be followed up by primary MD at long term facility. JOB# [id number]
== END 2017-02-23 18:35 | DRG 563 ==
LOC: ER 12:23 → TELE 15:53
PROVIDERS: ADMIT Family Medicine; ATTEND Family Medicine
DX: S42.292A Other displaced fracture of upper end of left humerus, initial encounter for closed fracture (principal); F03.90 Unspecified dementia, unspecified severity, without behavioral disturbance, psychotic disturbance, mood disturbance, and anxiety; W19.XXXA Unspecified fall, initial encounter; I10 Essential (primary) hypertension; F29 Unspecified psychosis not due to a substance or known physiological condition; N32.81 Overactive bladder; R53.81 Other malaise; K59.00 Constipation, unspecified; M19.90 Unspecified osteoarthritis, unspecified site; Y93.89 Activity, other specified; Y92.89 Other specified places as the place of occurrence of the external cause; Y99.8 Other external cause status; Z82.49 Family history of ischemic heart disease and other diseases of the circulatory system; Z83.3 Family history of diabetes mellitus
CPT/HCPCS: 36415-UA; 71010-TC; 73000-TC-LT; 73030-TC-LT; 73060-TC-LT; 73080-TC-LT; 80048-TC; 82550-TC; 83036-90; 83880-TC; 84484-TC; 85025-TC; 85379-TC; 85610-TC; 93005; 93970-TC-50; 94760; J1650; J2270; J2405; X3904; Z7610